=== PATIENT | female | born 1985 | race Two or more races ===

== ENCOUNTER 2018-09-19 13:53 | Emergency (ER) | payer BC, OTHER ==
[2018-09-19 13:58] VITALS: BP 127/88; PULSE 71; TEMP 98.4; BMI 21.0
--- NOTE | 2018-09-19 14:08 | PDOC ---
History of Present Illness - General Chief Complaint: Pain Stated Complaint: ABD PAIN Time Seen by Provider: 09/19/18 13:56 - History of Present Illness Initial Comments: 09/19/18 14:20 Ms. Matute is a 33 yo female w/ pmh of oophorectomy following ovarian cyst ( single) who presents for evaluation of 3 day history of abdominal/pelvic cramps with diarrhea. Patient reports symptoms started 09/16 with diffuse abdominal pain and that she has had continued symptoms through today. Patient also reports exacerbation by eating and that she has to have a BM consisting of loose stool immediately following any meal. Patient reports she has been afraid to eat over the past 24 hours. Has also had nausea however has not vomited. Ms. Matute denies any fevers however reports she has had intermittent chills along with these symptoms. The patient denies chest pain, shortness of breath, headache and dizziness. Denies fever, vomit, and constipation. Denies dysuria, frequency, urgency and hematuria. Past History - Past Medical History Allergies/Adverse Reactions: Allergies Allergy/AdvReac Type Severity Reaction Status Date / Time No Known Allergies Allergy Verified 09/19/18 13:55 Home Medications: Ambulatory Orders Ciprofloxacin HCl [Cipro] 500 mg PO BID #20 tablet 09/19/18 metroNIDAZOLE [Flagyl -] 500 mg PO TID #30 tablet 09/19/18 COPD: No Other medical history: OVARIAN CYSTS - Suicide/Smoking/Psychosocial Hx Smoking History: Never smoked Have you smoked in the past 12 months: No Information on smoking cessation initiated: No Hx Alcohol Use: No Review of Systems - Review of Systems Comments:: 09/19/18 14:23 GENERAL/CONSTITUTIONAL: +Chills as described. No weakness. HEAD, EYES, EARS, NOSE AND THROAT: No change in vision. No ear pain or discharge. No sore throat. CARDIOVASCULAR: No chest pain or shortness of breath RESPIRATORY: No cough, wheezing, or hemoptysis. GASTROINTESTINAL: +Nausea and diarrhea with abdominal / pelvic cramps. No vomiting or constipation. GENITOURINARY: No dysuria, frequency, or change in urination. MUSCULOSKELETAL: No joint or muscle swelling or pain. No neck or back pain. SKIN: No rash NEUROLOGIC: No headache, vertigo, loss of consciousness, or change in strength/ sensation. ENDOCRINE: No increased thirst. No abnormal weight change HEMATOLOGIC/LYMPHATIC: No anemia, easy bleeding, or history of blood clots. ALLERGIC/IMMUNOLOGIC: No hives or skin allergy. *Physical Exam - Vital Signs Last Vital Signs Temp Pulse Resp BP Pulse Ox 98.4 F 71 18 127/88 100 09/19/18 13:53 09/19/18 13:53 09/19/18 13:53 09/19/18 13:53 09/19/18 13:53 - Physical Exam Comments: 09/19/18 14:25 GENERAL: Awake, alert, and fully oriented, in no acute distress HEAD: No signs of trauma, normocephalic, atraumatic EYES: PERRLA, EOMI, sclera anicteric, conjunctiva clear ENT: Auricles normal inspection, hearing grossly normal, nares patent, oropharynx clear without exudates. Moist mucosa NECK: Normal ROM, supple, no lymphadenopathy, JVD, or masses LUNGS: No distress, speaks full sentences, clear to auscultation bilaterally HEART: Regular rate and rhythm, normal S1 and S2, no murmurs, rubs or gallops, peripheral pulses normal and equal bilaterally. ABDOMEN: +Diffuse abdominal TTP. Soft, normoactive bowel sounds. No guarding, no rebound. No masses EXTREMITIES: Normal inspection, Normal range of motion, no edema. No clubbing or cyanosis. NEUROLOGICAL: Cranial nerves II through XII grossly intact. Normal speech, normal gait, no focal sensorimotor deficits SKIN: Warm, Dry, normal turgor, no rashes or lesions noted. ED Treatment Course - LABORATORY CBC & Chemistry Diagram: 09/19/18 14:35 09/19/18 14:35 Medical Decision Making - Medical Decision Making 09/19/18 15:56 Ms. Matute is a 33 yo female w/ pmh as described who presents for evaluation of symptoms concerning for infection vs. GI process vs. viral illness. Patient evaluated with labs as below as well as CT Abd/Pelvis for acute pathology. Patient further evaluation currently pending. 09/19/18 16:32 Labs grossly wnl as below. CT significant for concentric wall thickening involving upper third of the ascending colon as well as adjacent portion of hepatic flexure over length of approx 7cm. Inflammatory /infectious colitis or acute uncomplicated diverticulitis or less likely neoplastic disease suspected. Correlate with colonoscopy. Patient will be discharged with ABX for treatment and given GI follow-up. Discussed with patient who verbalized understanding and will comply. Discharging to home. Laboratory Results - last 24 hr 09/19/18 09/19/18 09/19/18 14:25 14:25 14:35 WBC 8.9 RBC 5.33 H Hgb 15.0 Hct 44.9 MCV 84.3 MCH 28.1 MCHC 33.3 RDW 13.0 Plt Count 234 MPV 10.3 Absolute Neuts (auto) 4.7 Neutrophils % 52.8 Lymphocytes % 36.1 Monocytes % 4.7 Eosinophils % 5.8 H Basophils % 0.6 Nucleated RBC % 0 Sodium Potassium Chloride Carbon Dioxide Anion Gap BUN Creatinine Est GFR (CKD-EPI)AfAm Est GFR (CKD-EPI)NonAf Random Glucose Calcium Total Bilirubin AST ALT Alkaline Phosphatase Total Protein Albumin Urine Color Yellow Urine Appearance Clear Urine pH 5.5 Urine Protein Trace Urine Glucose (UA) Negative Urine Ketones Trace Urine Blood 1+ H Urine Nitrite Negative Urine Bilirubin Negative Urine Urobilinogen 0.2 Ur Leukocyte Esterase Negative Urine RBC 5-10 Urine WBC 2-5 Ur Transition Epith Cell Few Urine Mucus 2+ Urine HCG, Qual Negative 09/19/18 14:35 WBC RBC Hgb Hct MCV MCH MCHC RDW Plt Count MPV Absolute Neuts (auto) Neutrophils % Lymphocytes % Monocytes % Eosinophils % Basophils % Nucleated RBC % Sodium 136 Potassium 3.9 Chloride 99 Carbon Dioxide 25 Anion Gap 12 BUN 9.0 Creatinine 0.8 Est GFR (CKD-EPI)AfAm 110.70 Est GFR (CKD-EPI)NonAf 95.52 Random Glucose 88 Calcium 9.4 Total Bilirubin 0.9 AST 18 ALT 13 Alkaline Phosphatase 47 Total Protein 8.2 Albumin 4.6 Urine Color Urine Appearance Urine pH Urine Protein Urine Glucose (UA) Urine Ketones Urine Blood Urine Nitrite Urine Bilirubin Urine Urobilinogen Ur Leukocyte Esterase Urine RBC Urine WBC Ur Transition Epith Cell Urine Mucus Urine HCG, Qual *DC/Admit/Observation/Transfer Diagnosis at time of Disposition: Colitis - Discharge Dispostion Disposition: HOME Condition at time of disposition: Stable - Prescriptions Prescriptions: Ciprofloxacin HCl [Cipro] 500 mg PO BID #20 tablet metroNIDAZOLE [Flagyl -] 500 mg PO TID #30 tablet - Referrals Referrals: Mario Nascimento MD [Staff Physician] - - Patient Instructions Printed Discharge Instructions: DI for Colitis Additional Instructions: You were evaluated today in the ER for your symptoms and found to have colitis on CT. We started you on antibiotics for treatment and sent a prescription to your pharmacy. Please take all medications as proscribed. We have also provided you with gastroenterology information which you may use to set up a follow-up appointment. Please follow-up later this week for further evaluation. Return to ER if any fever, chills, increase in pain, or other concerning symptoms. - Post Discharge Activity
[2018-09-19] MEDS ORDERED: SODIUM CHLORIDE 1,000 ML IV STA (14:12)
[2018-09-19] MEDS ORDERED: FAMOTIDINE 20 MG/50 ML IVPB 20 MG/50 ML MG IVPB ONE ×2 (14:24→14:36)
[2018-09-19] MEDS ORDERED: ONDANSETRON 4 MG/2 ML VIAL IVPUSH ONE (14:24)
[2018-09-19] MEDS ORDERED: ACETAMINOPHEN 1000 MG/100 ML VIAL (NON FORMULARY) IVPB ONE (14:24)
[2018-09-19] MEDS ORDERED: ACETAMINOPHEN INJECTION 100 ML IVPB ONE (14:36)
[2018-09-19] MEDS ORDERED: ONDANSETRON 4 MG/2 ML VIAL ONE (14:36)
--- NOTE | 2018-09-19 14:51 | PDOC ---
Attending Attestation - Resident Resident Name: Harsha Matias - ED Attending Attestation I have performed the following: I have examined & evaluated the patient, The case was reviewed & discussed with the resident, I agree w/resident's findings & plan, Exceptions are as noted - HPI HPI: 09/19/18 14:51 33-year-old female with history of ovarian cysts presents with diffuse abdominal pain for 3 days. Patient reported the previous stated that she ate a hotdog but reports that other family had eaten and without getting ill. States that she's been having diarrhea up to 8 times a day that is nonbloody. The patient denies any nausea or vomiting or fevers. She reports that this a persistent crampy like pain worsened lower quadrants in the upper quadrant. Denies vaginal bleeding. Reports last menstrual cycle approximately 2 weeks ago. Denies dysuria or urinary frequency. - Physicial Exam PE: 09/19/18 14:55 GENERAL: Awake, alert, and fully oriented, in no acute distress HEAD: No signs of trauma EYES: EOMI, sclera anicteric, conjunctiva clear ENT: Auricles normal inspection, hearing grossly normal, nares patent, Moist mucosa NECK: Normal ROM, supple, ABDOMEN: Soft, TTP LLQ, RLQ, suprapubic, ratna-umbilical No guarding, no rebound. No masses EXTREMITIES: Normal range of motion, no edema. No clubbing or cyanosis. No cords, erythema, or tenderness NEUROLOGICAL: Cranial nerves II through XII grossly intact. Normal speech, normal gait SKIN: Warm, Dry, normal turgor, no rashes or lesions noted. - Medical Decision Making 09/19/18 14:55 Vital Signs Temp Pulse Resp BP Pulse Ox 98.4 F 71 18 127/88 100 09/19/18 13:53 09/19/18 13:53 09/19/18 13:53 09/19/18 13:53 09/19/18 13:53 33-year-old female with abdominal pain and diarrhea. Differential includes gastroenteritis, colitis, diverticulitis, appendicitis, other acute abdominal pathology. Obtain test. Labs, urinalysis and CAT scan and pelvis and reassess. 09/19/18 16:46 CBC, BMP 09/19/18 14:35 09/19/18 14:35 CMP Sodium 136 mmol/L (136-145) 09/19/18 14:35 Potassium 3.9 mmol/L (3.5-5.1) 09/19/18 14:35 Chloride 99 mmol/L (98-107) 09/19/18 14:35 Carbon Dioxide 25 mmol/L (21-32) 09/19/18 14:35 Anion Gap 12 MMOL/L (8-16) 09/19/18 14:35 BUN 9.0 mg/dl (7-18) 09/19/18 14:35 Creatinine 0.8 mg/dl (0.55-1.3) 09/19/18 14:35 Est GFR (CKD-EPI)AfAm 110.70 09/19/18 14:35 Est GFR (CKD-EPI)NonAf 95.52 09/19/18 14:35 Random Glucose 88 mg/dl (74-106) 09/19/18 14:35 Calcium 9.4 mg/dl (8.5-10) 09/19/18 14:35 Total Bilirubin 0.9 mg/dl (0.2-1) 09/19/18 14:35 AST 18 U/L (15-37) 09/19/18 14:35 ALT 13 U/L (13-61) 09/19/18 14:35 Alkaline Phosphatase 47 U/L (45-117) 09/19/18 14:35 Total Protein 8.2 g/dl (6.4-8.2) 09/19/18 14:35 Albumin 4.6 g/dl (3.4-5.0) 09/19/18 14:35 Urine Test Results Urine Color Yellow 09/19/18 14:25 Urine Appearance Clear 09/19/18 14:25 Urine pH 5.5 (4.5-8) 09/19/18 14:25 Urine Protein Trace (NEGATIVE) 09/19/18 14:25 Urine Glucose (UA) Negative (NEGATIVE) 09/19/18 14:25 Urine Ketones Trace (NEGATIVE) 09/19/18 14:25 Urine Blood 1+ (NEGATIVE) H 09/19/18 14:25 Urine Nitrite Negative (NEGATIVE) 09/19/18 14:25 Urine Bilirubin Negative (NEGATIVE) 09/19/18 14:25 Ur Leukocyte Esterase Negative (NEGATIVE) 09/19/18 14:25 Urine RBC 5-10 /hpf (0-4) 09/19/18 14:25 Urine WBC 2-5 (NEGATIVE) 09/19/18 14:25 Urine Mucus 2+ 09/19/18 14:[address] scan demonstrates colitis, possible acute diverticulitis. I advised the patient that this is potentially infectious and that we will treat with cipro and flagyl x 10 days. (pt also notes that she has not had recent abx or exposures or travels). However, a percentage of these patients may have IBD. I strongly urged the patient to make a referral to GI for a colonoscopy. Pt verbalizes understanding and agrees with plan.
[2018-09-19 15:34] LABS: ALBUMIN 4.6 g/dl (3.4-5.0); BILIRUBIN,TOTAL 0.9 mg/dl (0.2-1); CALCIUM 9.4 mg/dl (8.5-10); CREATININE 0.8 mg/dl (0.55-1.3); POTASSIUM 3.9 mmol/L (3.5-5.1); TOT PROT 8.2 g/dl (6.4-8.2)
[2018-09-19 15:44] LABS: EPITHELIAL CELLS FEW /hpf
[2018-09-19 15:45] LABS: URINE MUCUS 2+
[2018-09-19 16:16] LABS: BASO % 0.6 % (0-2.0); EOS % 5.8 % (0-4.5); HEMATOCRIT 44.9 % (32.4-45.2); LYMPH % 36.1 % (8-40); MCH 28.1 pg (25.7-33.7); MCHC 33.3 g/dl (32.0-36.0); MEAN CELL VOLUME 84.3 fl (80-96); MEAN PLT VOLUME 10.3 fl (7.5-11.1); MONO % 4.7 % (3.8-10.2); NEUT % 52.8 % (42.8-82.8); PLATELET COUNT 234 K/MM3 (134-434); RBC 5.33 M/mm3 (3.60-5.2); WHITE BLOOD COUNT 8.9 K/mm3 (4.0-10.0)
[2018-09-19] MEDS ORDERED: CIPROFLOXACIN 500 MG TABLET (RESTRICTED TO ID) PO ONE (16:29)
[2018-09-19] MEDS ORDERED: metroNIDAZOLE 250 MG TABLET PO ONE (16:29)
[2018-09-19] MEDS ORDERED: CIPROFLOXACIN 250 MG TABLET (RESTRICTED TO ID) PO ONE (16:42)
[2018-09-19] MEDS ORDERED: metroNIDAZOLE 250 MG TABLET ONE (16:42)
== END 2018-09-19 16:50 | disposition home or self-care (01) ==
LOC: FER 13:53
PROC: 3E0337Z Introduction of Electrolytic and Water Balance Substance into Peripheral Vein, Percutaneous Approach (ICD-10-PCS; principal; 2018-09-19)
PROC: 3E033GC Introduction of Other Therapeutic Substance into Peripheral Vein, Percutaneous Approach (ICD-10-PCS; 2018-09-19)
PROC: 3E033NZ Introduction of Analgesics, Hypnotics, Sedatives into Peripheral Vein, Percutaneous Approach (ICD-10-PCS; 2018-09-19)
DX: K52.9 Noninfective gastroenteritis and colitis, unspecified (principal)
CPT/HCPCS: 36415; 74177-TC; 80053; 81003; 81015; 84703; 85025; 87077; 87086; 99284-25; J0131; J7030

== ENCOUNTER 2019-04-09 23:53 | Emergency (ER) | payer BC ==
[2019-04-10] VITALS: BP 103/55; PULSE 100; TEMP 99.2; BMI 21.4
[2019-04-10] MEDS ORDERED: KETOROLAC TROMETHAMINE 30 MG/1 ML VIAL ONE (00:01)
[2019-04-10] MEDS ORDERED: OSELTAMIVIR PHOSPHATE 75 MG CAPSULE ONE (00:01)
[2019-04-10] MEDS ORDERED: KETOROLAC TROMETHAMINE 30 MG/1 ML VIAL IM ONE (00:03)
[2019-04-10] MEDS ORDERED: OSELTAMIVIR PHOSPHATE 75 MG CAPSULE PO ONE (00:04)
--- NOTE | 2019-04-10 00:07 | PDOC ---
History of Present Illness - General Chief Complaint: Pain, Acute Stated Complaint: BODY ACHES,FEVER, Time Seen by Provider: 04/10/19 00:01 History Source: Patient Exam Limitations: No Limitations - History of Present Illness Initial Comments: 04/10/19 00:02 This is a 34-year-old female who comes in complaining of headache, body aches, fever, chills, congestion, cough and flulike symptoms. Patient said she did get her flu shot this year. Patient is also 7 weeks and did not know what she could take for her symptoms. Allergies: as per nursing notes Past Medical History: none Social history: Lives with family. No smoking. No alcohol. No illicit drugs. Surgical history: None General: + fevers or chills, no weakness, no weight loss HEENT: No change in vision. No sore throat,. No ear pain CardioVascular: no chest discomfort. No shortness of breath Respiratory:+ cough, or wheezing. Gastrointestinal: no nausea, vomiting, diarrhea or constipation, No rectal bleeding Genitourinary: No dysuria, hematuria, or frequency Musculoskeletal: No joint or muscle pain or swelling Neurologic: + headache, vertigo, dizziness or loss of consciousness Psychiatric: nor depression Skin: No rashes or easy bruising Endocrine: no increased thirst or abnormal weight change Allergic: no skin or latex allergy All other systems reviewed and normal Exam: General: Well-nourished well-developed individual, no acute distress HEENT: Throat: Normal, tonsils normal, no erythema or exudate Neck: Supple, no meningeal signs, no lymphadenopathy Eyes::Pupils equal reactive and round, extraocular motion intact Chest: Nontender to palpation Cardiac: S1-S2 normal, regular rate and rhythm, no murmurs rubs or gallops Respiratory: Lungs clear to auscultation bilateral Abdomen: Soft, nondistended, normal bowel sounds, there is no tenderness on palpation diffusely Extremities: Warm, dry, no cyanosis, clubbing, or edema Skin: No rashes Neuro: Alert and oriented x3, CN II - XII intact, nonfocal exam with normal strength, normal sensation, normal reflexes, normal gait, Psych: Normal mood and affect Past History - Past Medical History Allergies/Adverse Reactions: Allergies Allergy/AdvReac Type Severity Reaction Status Date / Time No Known Allergies Allergy Verified 04/09/19 23:55 Home Medications: Ambulatory Orders Oseltamivir Phosphate [Tamiflu] 75 mg PO BID #10 capsule 04/10/19 COPD: No Other medical history: 7 WEEKS - Psycho Social/Smoking Cessation Hx Smoking History: Never smoked Have you smoked in the past 12 months: No Information on smoking cessation initiated: No Hx Alcohol Use: No Drug/Substance Use Hx: No *Physical Exam - Vital Signs Last Vital Signs Temp Pulse Resp BP Pulse Ox 99.2 F 100 H 18 103/55 L 100 04/09/19 23:57 04/09/19 23:57 04/09/19 23:57 04/09/19 23:57 04/09/19 23:57 Discharge - Discharge Information Problems reviewed: Yes Clinical Impression/Diagnosis: Influenza Condition: Stable Disposition: HOME - Admission No - Follow up/Referral - Patient Discharge Instructions Additional Instructions: For the pain take Tylenol 2 extra strength tablets as often as every 4 hours if needed You can also take the Tylenol for fevers and body aches. Your symptoms are most likely secondary to the flu I have started you on the medication for the flu get your prescription filled and take it twice a day for 5 days. Return to the emergency department immediately with ANY new, persistent or worsening symptoms. Continue any medications as previously prescribed by your physician. You should follow up with your primary doctor as soon as possible regarding today's emergency department visit. . Please make sure your doctor reviews the results of your emergency evaluation. Thank you for coming to the Emergency Department today for your care. It was a pleasure to see you today. Please note that your evaluation is INCOMPLETE until you follow-up with your doctor. - Post Discharge Activity
== END 2019-04-10 00:13 | disposition home or self-care (01) ==
LOC: FER 23:53
PROC: 3E0233Z Introduction of Anti-inflammatory into Muscle, Percutaneous Approach (ICD-10-PCS; principal; 2019-04-09)
DX: J11.1 Influenza due to unidentified influenza virus with other respiratory manifestations (principal); O26.891 Other specified pregnancy related conditions, first trimester; Z3A.01 Less than 8 weeks gestation of pregnancy
CPT/HCPCS: 99281-25